=== PATIENT | female | born 1940 | race Caucasian/White ===

== ENCOUNTER 2017-11-04 14:40 | Emergency (ER) | payer MEDICARE, OTHER ==
[2017-11-04 15:18] VITALS: BP 152/71
--- NOTE | 2017-11-04 15:32 | UC ---
UC General HPI - HPI Summary HPI Summary: R ear pressure and fullness for over a week. no drainage or pain. sometimes makes her seem a little off balance but no now. no fever, CALDER[place] for focal deficits. - History of Current Complaint Hx Obtained From: Patient Timing: Constant Pain Intensity: 5 Aggravating: nothing Alleviating: nothing Associated Signs & Symptoms: Negative: Dizziness, Fever, Headache, Nausea, Vomiting <Domonique Back - Last Filed: 11/04/17 15:27> <Ju Walker - Last Filed: 11/04/17 16:09> - History of Current Complaint Chief Complaint: UCEar Stated Complaint: EAR COMPLAINT (R) Time Seen by Provider: 11/04/17 15:25 - Allergy/Home Medications Allergies/Adverse Reactions: Allergies Allergy/AdvReac Type Severity Reaction Status Date / Time No Known Allergies Allergy Verified 11/04/17 15:18 Home Medications: Home Medications Hydrochlorothiazide TAB* [Hydrodiuril TAB*] 25 mg PO DAILY 11/04/17 [History Confirmed 11/04/17] Levothyroxine TAB* [Synthroid TAB*] 88 mcg PO 0800 11/04/17 [History Confirmed 11/04/17] Omeprazole CAP* [Prilosec CAP* 20 MG] 20 mg PO DAILY 11/04/17 [History Confirmed 11/04/17] amLODIPine TAB* [Norvasc 5 mg TAB*] 5 mg PO DAILY 11/04/17 [History Confirmed ] PMH/Surg Hx/FS Hx/Imm Hx - Additional Past Medical History Additional PMH: "tachycardia" Cardiovascular History: Hypertension GI/ History: Gastroesophageal Reflux - Surgical History Surgical History: Yes Surgery Procedure, Year, and Place: PARTIAL HYSTSERECTOMY, VEIN LIGATION, TONSILLECTOMY, APPENDECTOMY - Family History Known Family History: Positive: Hypertension - Social History Occupation: Retired Lives: Alone Alcohol Use: Rare Substance Use Type: None Smoking Status (MU): Never Smoked Tobacco - Immunization History Vaccination Up to Date: Yes <Domonique Back - Last Filed: 11/04/17 15:27> Review of Systems Constitutional: Negative Skin: Negative Eyes: Negative ENT: Negative Respiratory: Negative Cardiovascular: Negative Gastrointestinal: Negative Genitourinary: Negative Motor: Negative Neurovascular: Negative Musculoskeletal: Negative Neurological: Negative Psychological: Negative Is Patient Immunocompromised?: No All Other Systems Reviewed And Are Negative: Yes <Domonique Back - Last Filed: 11/04/17 15:27> Physical Exam Triage Information Reviewed: Yes Appearance: Well-Appearing Vital Signs: Initial Vital Signs Temp 98.1 F 11/04/17 15:11 Pulse 51 11/04/17 15:11 Resp 16 11/04/17 15:11 BP 152/71 11/04/17 15:11 Pulse Ox 98 11/04/17 15:11 Vital Signs Reviewed: Yes Eyes: Positive: Conjunctiva Clear ENT: Positive: Pharynx normal, TMs normal - L, R obscured by cerumen. Negative : Nasal congestion, Nasal drainage Neck: Positive: Supple, Nontender, No Lymphadenopathy Respiratory: Positive: Lungs clear, Normal breath sounds Cardiovascular: Positive: RRR, No Murmur Abdomen Description: Positive: Nontender, No Organomegaly, Soft Bowel Sounds: Positive: Present Neurological: Positive: Alert, Other: - A&Ox3. cn grossly intact Psychological: Positive: Age Appropriate Behavior Skin Exam: Normal <Domonique Back - Last Filed: 11/04/17 15:27> Vital Signs: Initial Vital Signs Temp 98.1 F 11/04/17 15:11 Pulse 51 11/04/17 15:11 Resp 16 11/04/17 15:11 BP 152/71 11/04/17 15:11 Pulse Ox 98 11/04/17 15:11 <Ju Walker - Last Filed: 11/04/17 16:09> Re-Evaluation - Re-Evaluation Second Eval Re-Evaluation Time: 15:45 Change: Improved - discomfort resolved and TM cook plus canal clear post flush. <Domonique Back - Last Filed: 11/04/17 15:27> Course/Dx - Differential Dx - Multi-Symptom Provider Diagnoses: cerumen impaction R ear <Domonique Back - Last Filed: 11/04/17 15:27> Discharge - Sign-Out/Discharge Documenting (check all that apply): Discharge/Admit/Transfer - Billing Disposition and Condition Condition: STABLE Disposition: HOME <Domonique Back - Last Filed: 11/04/17 15:27> - Billing Disposition and Condition Condition: STABLE Disposition: HOME <Ju Walker - Last Filed: 11/04/17 16:09> - Discharge Plan Condition: Stable Disposition: HOME Patient Education Materials: Cerumen Impaction (ED) Referrals: Randi Armstrong MD [Primary Care Provider] - If Needed Attestation Statement User Type: Provider - I was available for consult. This patient was seen by the MAGDALENE. The patient was not presented to, seen by, or examined by me. -Puma <Ju Walker - Last Filed: 11/04/17 16:09>
== END 2017-11-04 15:56 | disposition home or self-care (01) ==
LOC: UCCORT 14:40
DX: H61.21 Impacted cerumen, right ear (principal); I10 Essential (primary) hypertension; K21.9 Gastro-esophageal reflux disease without esophagitis
CPT/HCPCS: 99212; G0463

== ENCOUNTER 2019-04-06 13:13 | Emergency (ER) | payer MEDICARE ==
--- OUTSIDE RECORDS SUMMARY | 2019-04-06 13:20 | XMS REPORT | Continuity of Care Document ---
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 Active Problems Provider Date Arthralgia of the pelvic region and Jose Blackman MD, FACS Onset: 2011 thigh Disorder of coccyx Jose Blackman MD, FACS Onset: 09/21/2011 Localized, primary osteoarthritis of Jose Blackman MD, FACS Onset: 08/26 the shoulder region Disorder of shoulder Jose Blackman MD, FACS Onset: 08/26/2013 Disorder of bursa of shoulder region Jose Blackman MD, FACS Onset: 10/26 Full thickness rotator cuff tear Jose Blackman MD, FACS Onset: 2013 Left bundle branch block Percy Marrufo M.D., Onset: 04/28/2018 [facility] Aortic valve disorder Jo Ann Hayes, MSN, Onset: 03/12/2016 [employer]IOR [employer] MARKET COORDINATOR Pulmonary valve disorder Jo Ann Hayes, MSN, Onset: 03/12/2016 S[employer]IOR ENERGY MARKET COORDINATOR Tricuspid valve disorder, Jo Ann Hayes, MSN, Onset: 03/12/2016 non-rheumatic [employer]ER[employer] MARKET COORDINATOR Essential hypertension Jo Ann Hayes, MSN, Onset: 02/21/2016 S[employer]IOR ENERGY MARKET COORDINATOR Paroxysmal supraventricular Percy Marrufo M.D., Onset: 02/18/2015 tachycardia FACC Hypothyroidism Percy Marrufo M.D., Onset: 02/02/2014 FACC Benign essential hypertension Percy Marrufo M.D., Onset: 02/02/2014 [facility] Tachycardia Percy Marrufo M.D., Onset: 02/02/2014 [facility] Social History Type Date Description Comments Sex Unknown Tobacco Use Start: Unknown Never Smoked Cigarettes Smoking Status Reviewed: 03/25/19 Never Smoked Cigarettes ETOH Use Denies alcohol use Tobacco Use Start: Unknown Patient denies history of smoking Recreational Drug Use Denies Drug Use Allergies, Adverse Reactions, Alerts Description No Known Drug Allergies Medications Active Medications SIG Qnty Indications Ordering Provider Date Atenolol 1 by mouth every I47.1 Hayes, Jo Ann 01/17/2018 50mg Tablets day MEDINA Gibson, SENIOR ENERGY MARKET COORDINATOR I10 Multaq 1 by mouth twice a 90tabs Percy Marrufo 03/23/2016 400mg Tablets day Maxine Cosby, [facility] Aspir-81 1 by mouth every Hayes, Jo Ann 08/16/[address] day MEDINA Gibson, SENIOR ENER[employer] MARKET COORDINATOR Levothyroxine Sodium 1 po qd 30tabs Unknown 75mcg Tablets Calcitonin ([place]) one intranasal Unknown 200Unit/Act spray every day Solution Vitamin D 1 by mouth every Unknown 1000Unit Tablets day Omeprazole 1 by mouth every Unknown 20mg Capsules DR day Hydroxychloroquine Sulfate 1 po bid Unknown 200mg Tablets Losartan Potassium 1 by mouth every Unknown 25mg Tablets day Hydrochlorothiazide Take One Tablet By Unknown 25mg Tablets Mouth Every Day Sertraline HCL 1 by mouth every Unknown 25mg Tablets day Medications Administered in Office Medication SIG Qnty Indications Ordering Provider Date Methylprednisolone acetate Josey Mack, 09/17/2013 (Depomedrol) 80mg injection [facility] Injection Immunizations Description No Information Available Vital Signs Date Vital Result Comment 03/25/2019 10:46am BP Systolic Sitting Right Arm 129 mmHg BP Diastolic Sitting Right Arm 73 mmHg Heart Rate 53 /min Respiratory Rate 16 /min Height 64 inches 5'4" Weight 159.00 lb BMI (Body Mass Index) 27.3 kg/m2 BSA (Body Surface Area) 1.77 m2 [place] body weight in kilograms 54 kg O2 % BldC Oximetry 97 % ra 07/10/2018 1:58pm BP Systolic Sitting Left Arm 144 mmHg BP Diastolic Sitting Left Arm 76 mmHg Heart Rate 55 /min Respiratory Rate 16 /min Height 64 inches 5'4" Weight 159.00 lb BMI (Body Mass Index) 27.3 kg/m2 BSA (Body Surface Area) 1.77 m2 [place] body weight in kilograms 54 kg O2 Saturation Level with Exercise 98 % Results Description No Information Available Procedures Date Code Description Status 03/25/2019 09590 EKG-Tracing And Report Completed Medical Devices Description No Information Available Encounters Type Date Location Provider Dx Diagnosis Office Visit 03/25/2019 Cardiology Office Jo Ann Hayes I95.1 Orthostatic 10:20a MEDINA Gibson, hypotension S[employer]IOR [employer] MARKET COORDINATOR I47.1 Supraventricular tachycardia I10 Essential (primary) hypertension I44.7 Left bundle-branch block, unspecified I35.1 Nonrheumatic aortic (valve) insufficiency I36.1 Nonrheumatic tricuspid (valve) insufficiency Assessments Date Code Description Provider 03/25/2019 I95.1 Orthostatic hypotension Jo Ann Hayes, MEDINA, SENIOR ENERGY MARKET COORDINATOR 03/25/2019 I47.1 Supraventricular tachycardia Jo Ann Hayes, MEDINA, SENIOR ENERGY MARKET COORDINATOR 03/25/2019 I10 Essential (primary) hypertension Jo Ann Hayes, MEDINA, SENIOR ENERGY MARKET COORDINATOR 03/25/2019 I44.7 Left bundle-branch block, unspecified Jo Ann Hayes, MEDINA, SENIOR ENERGY MARKET COORDINATOR 03/25/2019 I35.1 Nonrheumatic aortic (valve) Jo Ann Hayes MSN, insufficiency S[employer]IOR ENERGY MARKET COORDINATOR 03/25/2019 I36.1 Nonrheumatic tricuspid (valve) Jo Ann Hayes MSN, insufficiency SENIOR ENERGY MARKET COORDINATOR Plan of Treatment Future Appointment(s):12/09/2019 10:40 am - Jo Ann Hayes MSN, SENIOR ENERGY MARKET COORDINATOR at Cardiology [id number]/25/2019 - Jo Ann Hayes MSN, FNPI95.1 Orthostatic hypotensionComments:I asked her to avoid standing still while in lines and doing dishes. Recommended that she use her compression stockings when going out shopping. Stay well hydrated. If lightheaded, lie down.I47.1 Supraventricular tachycardiaComments:Monitor.I10 Essential (primary) hypertensionComments:No changes.I44.7 Left bundle-branch block, unspecifiedComments:Monitor.I35.1 Nonrheumatic aortic (valve) insufficiencyNew Orders:Echocardiogram, Ordered: 08/12Comments:We will re-evaluate with an echo.I36.1 Nonrheumatic tricuspid ( valve) insufficiencyNew Orders:Echocardiogram, Ordered: 03/25/19AllFollow up: Return in November with echo just prior. Functional Status Functional Condition Comment Date Status Independent with all ADL's Active Mental Status Description No Information Available Referrals Description No Information Available
--- OUTSIDE RECORDS SUMMARY | 2019-04-06 13:20 | XMS REPORT | Continuity of Care Document ---
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 Problems Active Problems Provider Date Arthralgia of [...] branch block Percy Marrufo M.D., Onset: 04/28/2018 [facility] Aortic valve disorder Jo Ann Hayes, MSN, Onset: 03/12/2016 [employer] DES[employer] Pulmonary valve disorder Jo Ann Hayes, MSN, Onset: 03/12/2016 [employer] DESIGNER Tricuspid valve disorder, Jo Ann Hayes, MSN, Onset: 03/12/2016 non-rheumatic [employer] DES[employer]ER Essential hypertension Jo Ann Hayes, MSN, Onset: 02/21/2016 [employer] DESIGNER Paroxysmal supraventricular Percy Marrufo M.D., Onset: 02/18/2015 tachycardia FACC Hypothyroidism Percy Marrufo M.D., Onset: 02/02/2014 FACC Benign essential hypertension Percy Marrufo M.D., Onset: 02/02/2014 [facility] Tachycardia Percy Marrufo M.D., Onset: 02/02/2014 [facility] Social History Type Date Description Comments Sex [...] Ann 01/17/2018 50mg Tablets day MEDINA Gibson, MOLD DESIGNER I10 Multaq 1 by mouth twice a 90tabs Percy Marrufo 03/23/2016 400mg Tablets day Maxine Cosby, [facility] Aspir-81 1 by mouth every Hayes, Jo Ann 08/16/[address] day MEDINA Gibson, MOLD DESIGNER Levothyroxine Sodium 1 po qd 30tabs Unknown 75mcg Tablets Calcitonin ([place]) one intranasal Unknown 200Unit/Act spray every day [...] acetate Josey Mack, 09/17/2013 (Depomedrol) 80mg injection [facility] Injection Immunizations Description No Information Available Vital Signs Date Vital Result Comment 03/25/2019 10:46am BP Systolic Sitting Right Arm 129 mmHg BP Diastolic Sitting Right Arm 73 mmHg Heart Rate 53 /min Respiratory Rate 16 /min Height 64 inches 5'4" Weight 159.00 lb BMI (Body Mass Index) 27.3 kg/m2 BSA (Body Surface Area) 1.77 m2 [place] body weight in kilograms 54 kg O2 % BldC Oximetry 97 % ra 07/10/2018 1:58pm BP Systolic Sitting Left Arm 144 mmHg BP Diastolic Sitting Left Arm 76 mmHg Heart Rate 55 /min Respiratory Rate 16 /min Height 64 inches 5'4" Weight 159.00 lb BMI (Body Mass Index) 27.3 kg/m2 BSA (Body Surface Area) 1.77 m2 [place] body weight in kilograms 54 kg O2 Saturation Level with Exercise 98 % Results Description No Information Available Procedures Date Code Description Status 03/25/2019 20378 EKG-Tracing And Report Completed Medical Devices Description No Information Available Encounters Type Date Location Provider Dx Diagnosis Office Visit 03/25/2019 Cardiology Office Jo Ann Hayes I95.1 Orthostatic 10:20a MEDINA Gibson, hypotension MOLD DESIGNER I47.1 Supraventricular tachycardia I10 Essential (primary) hypertension I44.7 Left bundle-branch block, unspecified I35.1 Nonrheumatic aortic (valve) insufficiency I36.1 Nonrheumatic tricuspid (valve) insufficiency Assessments Date Code Description Provider 03/25/2019 I95.1 Orthostatic hypotension Jo Ann Hayes, MEDINA, MOLD DESIGNER 03/25/2019 I47.1 Supraventricular tachycardia Jo Ann Hayes, MEDINA, MOLD DESIGNER 03/25/2019 I10 Essential (primary) hypertension Jo Ann Hayes, MEDINA, MOLD DESIGNER 03/25/2019 I44.7 Left bundle-branch block, unspecified Jo Ann Hayes, MEDINA, MOLD DESIGNER 03/25/2019 I35.1 Nonrheumatic aortic (valve) Jo Ann Hayes MSN, insufficiency MOLD DESIGNER 03/25/2019 I36.1 Nonrheumatic tricuspid (valve) Jo Ann Hayes MSN, insufficiency MOLD DESIGNER Plan of Treatment Future Appointment(s):12/09/2019 10:40 am - Jo Ann Hayes MSN, MOLD DESIGNER at Cardiology [id number]/25/2019 - Jo Ann Hayes MSN, FNPI95.1 Orthostatic [...]
--- NOTE | 2019-04-06 13:22 | UC ---
Lower Extremity/Ankle HPI - HPI Summary HPI Summary: 79 yo female presents with RIGHT foot pain. She tells me that on 04/03 she was at a burial service and was on her feet most of the day. Later that night she noticed right medial midfoot pain that is worse with weight bearing. She has rested the area and feels better for a short time before weight bearing worsens it again. She denies specific injury. Has been taking advil with minimal relief. She is currently ambulating with a walker, but states she does not use an assisting walking device normally at baseline. - History of Current Complaint Stated Complaint: RIGHT FOOT PAIN Time Seen by Provider: 04/06/19 13:22 Hx Obtained From: Patient Onset/Duration: Sudden Onset Severity Initially: Moderate Severity Currently: Moderate Pain Intensity: 6 Pain Scale Used: 0-10 Numeric Aggravating Factor(s): Standing, Ambulation Alleviating Factor(s): Rest Able to Bear Weight: Yes - Allergies/Home Medications Allergies/Adverse Reactions: Allergies Allergy/AdvReac Type Severity Reaction Status Date / Time No Known Allergies Allergy Verified 04/06/19 13:31 Home Medications: Home Medications Hydroxychloroquine TAB* [Plaquenil TAB*] 200 mg PO DAILY 04/06/19 [History Confirmed 04/06/19] Losartan TAB* [Cozaar TAB*] 25 mg PO DAILY 04/06/19 [History Confirmed 04/06/19] Sertraline* [Zoloft*] 25 mg PO DAILY 04/06/19 [History Confirmed 04/06/19] PMH/Surg Hx/FS Hx/Imm Hx Endocrine History: Hypothyroidism Cardiovascular History: Hypertension GI/ History: Gastroesophageal Reflux - Surgical History Surgical History: Yes Surgery Procedure, Year, and Place: PARTIAL HYSTSERECTOMY, VEIN LIGATION, TONSILLECTOMY, APPENDECTOMY - Family History Known Family History: Positive: Hypertension - Social History Lives: With Family Alcohol Use: Rare Substance Use Type: None Smoking Status (MU): Never Smoked Tobacco - Immunization History Vaccination Up to Date: Yes Review of Systems All Other Systems Reviewed And Are Negative: No Constitutional: Positive: Negative Skin: Positive: Negative Respiratory: Positive: Negative Cardiovascular: Positive: Negative Neurovascular: Positive: Negative Musculoskeletal: Positive: Other: - Right foot pain Neurological: Positive: Negative Psychological: Positive: Negative Physical Exam - Summary Physical Exam Summary: GENERAL: NAD. WDWN. No pain distress. SKIN: No rashes, sores, lesions, or open wounds. CHEST: No accessory muscle use. Breathing comfortably and in no distress. CV: Pulses intact PT and DP. Cap refill <2seconds MSK: RIGHT FOOT: Mild TTP at base of 1st MT at medial midfoot. FROM toes and ankle. Ankle NTTP. Strength 5/5. No edema or obvious bony deformities. NEURO: Alert. Sensations intact and symmetric B/L LEs PSYCH: Age appropriate behavior. Triage Information Reviewed: Yes Vital Signs: Vital Signs: Temp Pulse Resp BP Pulse Ox 97.2 F 58 19 118/63 100 04/06/19 13:28 04/06/19 13:28 04/06/19 13:28 04/06/19 13:28 04/06/19 13:28 Vital Signs Reviewed: Yes Diagnostics - Radiology XR Radiology Interpretation Completed By: Radiologist Summary of Radiographic Findings: IMPRESSION: 1. OSTEOPENIA. 2. OSTEOARTHRITIS. 3. HALLUX VALGUS 4. 0.4 CM LINEAR RADIOPAQUE FOREIGN BODY OVERLYING THE LATERAL FOOT AT THE FIFTH MTP JOINT.. Lower Extremity Course/Dx - Course Course Of Treatment: XR as above. Suspect tendinitis of the area from being on her feet recently. She was placed in a post op shoe and advised to rest, ice, and elevate her foot. Continue tylenol/ibuprofen and be rechecked by Ortho if symptoms do not improve within 1 week - Differential Dx/Diagnosis Provider Diagnosis: Right foot pain Discharge ED - Sign-Out/Discharge Documenting (check all that apply): Patient Departure All imaging exams completed and their final reports reviewed: Yes - Discharge Plan Condition: Stable Disposition: HOME Patient Education Materials: Tendinitis (ED) Referrals: Randi Armstrong MD [Primary Care Provider] - Brendan Robledo MD [Medical Doctor] - 1 Week Additional Instructions: If you develop a fever, shortness of breath, chest pain, new or worsening symptoms - please call your PCP or go to the ED immediately. 1) Rest, Ice, and elevate your foot intermittently throughout the day to reduce pain 2) Use the post-op shoe as needed for comfort 3) Continue taking tylenol/ibuprofen as directed 4) If your symptoms do not improve within 1 week - please call Dr. Robledo to schedule an appointment for a recheck - Billing Disposition and Condition Condition: STABLE Disposition: Home - Attestation Statements Provider Attestation: I was available for consult. This patient was seen by the MAGDALENE. The patient was not presented to, seen by, or examined by me. -Puma
[2019-04-06 13:31] VITALS: BP 118/63
== END 2019-04-06 14:15 | disposition home or self-care (01) ==
LOC: UCCORT 13:13
DX: M79.671 Pain in right foot (principal); I10 Essential (primary) hypertension; M85.871 Other specified disorders of bone density and structure, right ankle and foot; M19.071 Primary osteoarthritis, right ankle and foot; M20.11 Hallux valgus (acquired), right foot; R93.6 Abnormal findings on diagnostic imaging of limbs; Z79.899 Other long term (current) drug therapy
CPT/HCPCS: 99212; G0463